=== PATIENT | female | born 1935 | race Caucasian/White ===

== ENCOUNTER 2020-04-18 19:43 | Inpatient (IN) ==
[2020-04-18] MEDS ORDERED: ONDANSETRON 4 MG/2 ML VIAL IV STA (20:14)
[2020-04-18 20:34] LABS: Basophils # 0.1 10*3/uL (0.0-0.2); Basophils % 0.7 % (0.0-0.8); Eosinophils # 0.2 10*3/uL (0.0-0.87); Eosinophils % 2.7 % (0.00-10.9); Hemoglobin 12.2 GM/DL (12.0-16.0); Immature Granulocytes % 0.9 %; Immature Granulocytes Absolute 0.07 #; Lymphocytes # 0.7 10*3/uL (1.4-4.0); Lymphocytes % 9.9 % (21.3-54.2); Mean Corpuscular HGB Conc 33.9 GM/DL (32-36); Mean Corpuscular Volume 101.1 FL (87-102); Mean Platelet Volume 8.3 FL (9.6-12.0); Monocytes % 9.6 % (1.7-12.7); Neutrophils % 76.2 % (38.7-73.9); Platelet Count 158 T/CUMM (130-400); Red Blood Count 3.56 MC/CUMM (3.8-5.5); Red Cell Distribution Width 12.8 % (9.3-17.3); White Blood Count 7.5 T/CUMM (4-12)
[2020-04-18 20:51] LABS: Alanine Aminotransferase 17 U/L (13-56); Albumin 2.5 G/DL (3.4-5.0); Alkaline Phosphatase 83 U/L (45-117); Aspartate Amino Transferase 24 U/L (0-37); Bilirubin,Total < 0.39 MG/DL (0.2-1.0); Blood Urea Nitrogen 63 MG/DL (7-18); Calcium 8.7 MG/DL (8.5-10.1); Estimated Glom Filtration Rate 9 ML/MIN; Glucose 70 MG/DL (74-106); Osmolality,Calculated 288.8 MOS/KG (273-304); Total Protein 6.6 G/DL (6.4-8.3)
[2020-04-18] MEDS ORDERED: cefTRIAXone 1,000 MG in SODIUM CHLORIDE 0.9% 100 ML IV STA (21:17)
[2020-04-18 21:35] LABS: Bacteria,Urine Occasional /HPF (Few); Bilirubin,Urine Negative (Negative); Blood, Urine Negative (Negative); Glucose,Urine (UA) Negative (Negative); Ketones,Urine Negative (Negative); Nitrite,Urine Negative (Negative); Protein,Urine Negative; RBC,Urine 2 /HPF (0-4); Squamous Epithelial Cell,Urine Occasional /HPF (0-10); Urine Appearance CLEAR (Clear); Urine Color Yellow (Yellow); Urine Urobilinogen < 2.0 EU/DL (0.2-1.0); WBC,Urine 2 /HPF (0-6)
[2020-04-19] MEDS ORDERED: GLUCAGON 1 MG VIAL IM PRN (00:50)
[2020-04-19] MEDS ORDERED: DEXTROSE 50% 25 GM/50 ML VIAL IV PRN (00:50)
[2020-04-19] MEDS ORDERED: LACTULOSE 20 GM/30 ML UDCUP PO PRN (00:55)
[2020-04-19] MEDS ORDERED: DOXYCYCLINE HYCLATE INJ 100 MG in SODIUM CHLORIDE 0.9% 100 ML IV SCH (01:00)
[2020-04-19] MEDS ORDERED: LABETALOL 20 MG/4 ML SYRINGE IV PRN (01:14)
[2020-04-19] MEDS ORDERED: DEXTROSE 50% 25 GM/50 ML SYRINGE IV PRN (01:15)
[2020-04-19] MEDS: SODIUM BICARB INJ 50 MEQ in SODIUM CHLORIDE 0.45% 1,000 ML IV SCH (03:41)
[2020-04-19 04:51] LABS: Basophils % 0.4 % (0.0-0.8); Eosinophils # 0.2 10*3/uL (0.0-0.87); Eosinophils % 2.3 % (0.00-10.9); Hematocrit 31.8 VOL% (35.7-47.0); Hemoglobin 10.7 GM/DL (12.0-16.0); Immature Granulocytes % 1.2 %; Immature Granulocytes Absolute 0.09 #; Lymphocytes # 0.6 10*3/uL (1.4-4.0); Lymphocytes % 8.6 % (21.3-54.2); Mean Corpuscular HGB Conc 33.6 GM/DL (32-36); Mean Corpuscular Volume 102.6 FL (87-102); Mean Platelet Volume 8.4 FL (9.6-12.0); Neutrophils % 78.5 % (38.7-73.9); Platelet Count 156 T/CUMM (130-400); Red Cell Distribution Width 12.8 % (9.3-17.3); White Blood Count 7.4 T/CUMM (4-12)
[2020-04-19 05:14] LABS: Albumin 2.4 G/DL (3.4-5.0); Bilirubin,Total 1.2 MG/DL (0.2-1.0); Calcium 8.6 MG/DL (8.5-10.1); Osmolality,Calculated 288.8 MOS/KG (273-304); Total Protein 6.1 G/DL (6.4-8.3)
[2020-04-19] MEDS: hydrALAZINE 20 MG/1 ML VIAL IV PRN ×2 (08:22→20:49)
[2020-04-19] MEDS: ONDANSETRON 4 MG/2 ML VIAL IV PRN (08:29)
[2020-04-19] MEDS: ACETAMINOPHEN 325 MG TABLET PO PRN (10:01)
[2020-04-19] MEDS ORDERED: NON-FORMULARY MEDICATION (Saliva Substitute Combo No.9 [Biotene Dry Mouth Oral Rinse] Mout MUCOUS MEMBRANE SCH (10:30)
[2020-04-19] MEDS ORDERED: SODIUM CHLORIDE 0.9% 1,000 ML IV SCH (11:30)
[2020-04-19] MEDS: CLINDAMYCIN INJ 600 MG in PREMIX 1 EACH IV SCH ×2 (13:13→20:48)
[2020-04-19] MEDS: busPIRone 5 MG TABLET PO SCH (20:48)
[2020-04-19] MEDS: SODIUM CHLORIDE 0.65% NASAL SPRAY 45 ML BOTTLE BOTH NARES PRN (20:48)
[2020-04-19] MEDS: MELATONIN 3 MG TABLET PO SCH (20:49)
[2020-04-19] MEDS: ACETAMINOPHEN 500 MG TABLET PO SCH (20:49)
[2020-04-19] MEDS: FLUTICASONE 50 MCG NASAL SPRAY 16 GM BOTTLE BOTH NARES SCH (21:05)
[2020-04-20] MEDS: SODIUM BICARB INJ 50 MEQ in SODIUM CHLORIDE 0.45% 1,000 ML IV SCH ×2 (03:27→17:21)
[2020-04-20] MEDS: CLINDAMYCIN INJ 600 MG in PREMIX 1 EACH IV SCH ×3 (03:28→20:06)
[2020-04-20] MEDS: LEVOTHYROXINE 50 MCG TABLET PO SCH (06:18)
[2020-04-20 06:22] LABS: Basophils % 0.4 % (0.0-0.8); Eosinophils # 0.1 10*3/uL (0.0-0.87); Eosinophils % 0.7 % (0.00-10.9); Hematocrit 30.9 VOL% (35.7-47.0); Hemoglobin 10.6 GM/DL (12.0-16.0); Immature Granulocytes % 0.9 %; Immature Granulocytes Absolute 0.07 #; Lymphocytes # 0.5 10*3/uL (1.4-4.0); Lymphocytes % 5.6 % (21.3-54.2); Mean Corpuscular HGB Conc 34.3 GM/DL (32-36); Mean Corpuscular Volume 102.3 FL (87-102); Mean Platelet Volume 8.2 FL (9.6-12.0); Monocytes % 8.6 % (1.7-12.7); Neutrophils % 83.8 % (38.7-73.9); Platelet Count 171 T/CUMM (130-400); Red Blood Count 3.02 MC/CUMM (3.8-5.5); Red Cell Distribution Width 13.1 % (9.3-17.3); White Blood Count 8.2 T/CUMM (4-12)
[2020-04-20 06:49] LABS: Albumin 2.4 G/DL (3.4-5.0); Bilirubin,Total 0.7 MG/DL (0.2-1.0); Calcium 8.4 MG/DL (8.5-10.1); Osmolality,Calculated 297.5 MOS/KG (273-304); Total Protein 6.2 G/DL (6.4-8.3)
[2020-04-20] MEDS: busPIRone 5 MG TABLET PO SCH ×2 (12:18→20:07)
[2020-04-20] MEDS: AMIODARONE 200 MG TABLET PO SCH (12:18)
[2020-04-20] MEDS: ASPIRIN CHEW 81 MG TABLET PO SCH (12:18)
[2020-04-20] MEDS: FLUTICASONE 50 MCG NASAL SPRAY 16 GM BOTTLE BOTH NARES SCH ×2 (12:20→20:08)
[2020-04-20] MEDS: hydrALAZINE 20 MG/1 ML VIAL IV PRN (20:05)
[2020-04-20] MEDS: ACETAMINOPHEN 500 MG TABLET PO SCH (20:06)
[2020-04-20] MEDS: MELATONIN 3 MG TABLET PO SCH (20:07)
[2020-04-21] MEDS: CLINDAMYCIN INJ 600 MG in PREMIX 1 EACH IV SCH ×3 (04:29→21:03)
[2020-04-21] MEDS: SODIUM BICARB INJ 50 MEQ in SODIUM CHLORIDE 0.45% 1,000 ML IV SCH ×3 (04:57→22:14)
[2020-04-21] MEDS ORDERED: cefTRIAXone 1,000 MG in SYRINGE 1 EACH IV ONE (06:00)
[2020-04-21] MEDS: LEVOTHYROXINE 50 MCG TABLET PO SCH (06:06)
[2020-04-21 06:07] LABS: Basophils % 0.3 % (0.0-0.8); Eosinophils # 0.2 10*3/uL (0.0-0.87); Hematocrit 27.6 VOL% (35.7-47.0); Hemoglobin 9.6 GM/DL (12.0-16.0); Immature Granulocytes % 1.1 %; Lymphocytes # 0.7 10*3/uL (1.4-4.0); Lymphocytes % 7.6 % (21.3-54.2); Mean Corpuscular HGB Conc 34.8 GM/DL (32-36); Mean Corpuscular Volume 99.6 FL (87-102); Mean Platelet Volume 8.3 FL (9.6-12.0); Monocytes % 9.2 % (1.7-12.7); Neutrophils % 79.8 % (38.7-73.9); Platelet Count 186 T/CUMM (130-400); Red Blood Count 2.77 MC/CUMM (3.8-5.5); Red Cell Distribution Width 12.8 % (9.3-17.3); White Blood Count 8.8 T/CUMM (4-12)
[2020-04-21 06:30] LABS: Calcium 7.3 MG/DL (8.5-10.1); Osmolality,Calculated 295.7 MOS/KG (273-304)
[2020-04-21] MEDS: ASPIRIN CHEW 81 MG TABLET PO SCH (08:37)
[2020-04-21] MEDS: AMIODARONE 200 MG TABLET PO SCH (08:37)
[2020-04-21] MEDS: busPIRone 5 MG TABLET PO SCH ×2 (08:37→21:04)
[2020-04-21] MEDS: FLUTICASONE 50 MCG NASAL SPRAY 16 GM BOTTLE BOTH NARES SCH ×2 (08:38→21:05)
[2020-04-21] MEDS ORDERED: PHENYLEPHRINE 1 MG/10 ML SYRINGE IV ONE (09:57)
[2020-04-21] MEDS ORDERED: LIDOCAINE 2% 5 ML VIAL ONE (09:57)
[2020-04-21] MEDS ORDERED: ETOMIDATE 40 MG/20 ML VIAL IV ONE (09:57)
[2020-04-21] MEDS ORDERED: GENTAMICIN 80 MG/2 ML VIAL ONE (10:01)
[2020-04-21] MEDS ORDERED: LACTATED RINGERS 1,000 ML IV ONE (10:44)
[2020-04-21] MEDS ORDERED: SEVOFLURANE 1 UNIT/15 MINUTE INH ONE (10:44)
[2020-04-21] MEDS: hydrALAZINE 20 MG/1 ML VIAL IV PRN (11:05)
[2020-04-21] MEDS: ACETAMINOPHEN 325 MG TABLET PO PRN (13:43)
[2020-04-21] MEDS: OXYBUTYNIN XL 15 MG TABLET PO SCH (13:50)
[2020-04-21] MEDS: MORPHINE 4 MG/1 ML VIAL IV PRN (16:29)
[2020-04-21] MEDS: amLODIPine 10 MG TABLET PO SCH (16:53)
[2020-04-21] MEDS: MELATONIN 3 MG TABLET PO SCH (21:07)
[2020-04-21] MEDS: ACETAMINOPHEN 500 MG TABLET PO SCH (21:09)
[2020-04-22] MEDS: MORPHINE 4 MG/1 ML VIAL IV PRN ×2 (02:46→15:47)
[2020-04-22] MEDS: CLINDAMYCIN INJ 600 MG in PREMIX 1 EACH IV SCH ×3 (04:07→22:06)
[2020-04-22 06:46] LABS: Basophils % 0.4 % (0.0-0.8); Eosinophils # 0.1 10*3/uL (0.0-0.87); Eosinophils % 0.6 % (0.00-10.9); Hematocrit 28.6 VOL% (35.7-47.0); Immature Granulocytes % 0.9 %; Immature Granulocytes Absolute 0.09 #; Lymphocytes # 0.4 10*3/uL (1.4-4.0); Lymphocytes % 3.8 % (21.3-54.2); Mean Corpuscular Volume 99.7 FL (87-102); Mean Platelet Volume 8.4 FL (9.6-12.0); Monocytes % 9.3 % (1.7-12.7); Platelet Count 186 T/CUMM (130-400); Red Blood Count 2.87 MC/CUMM (3.8-5.5); Red Cell Distribution Width 13.2 % (9.3-17.3); White Blood Count 10.4 T/CUMM (4-12)
[2020-04-22 07:09] LABS: Calcium 7.9 MG/DL (8.5-10.1); Osmolality,Calculated 296.3 MOS/KG (273-304)
[2020-04-22] MEDS ORDERED: POTASSIUM CHLORIDE RIDER 10 MEQ in PREMIX 1 EACH IV PRN (08:00)
[2020-04-22] MEDS ORDERED: POTASSIUM CHLORIDE 20 MEQ TABLET PO PRN (08:00)
[2020-04-22] MEDS: POTASSIUM CHLORIDE 20 MEQ/15 ML UDCUP PER TUBE PRN ×4 (08:57→14:41)
[2020-04-22] MEDS: OXYBUTYNIN XL 15 MG TABLET PO SCH (08:58)
[2020-04-22] MEDS: amLODIPine 10 MG TABLET PO SCH (08:59)
[2020-04-22] MEDS: AMIODARONE 200 MG TABLET PO SCH (08:59)
[2020-04-22] MEDS: ASPIRIN CHEW 81 MG TABLET PO SCH (08:59)
[2020-04-22] MEDS: busPIRone 5 MG TABLET PO SCH ×2 (08:59→22:06)
[2020-04-22] MEDS: FLUTICASONE 50 MCG NASAL SPRAY 16 GM BOTTLE BOTH NARES SCH ×2 (09:00→22:07)
[2020-04-22] MEDS: SODIUM BICARB INJ 50 MEQ in SODIUM CHLORIDE 0.45% 1,000 ML IV SCH (10:15)
[2020-04-22] MEDS: ONDANSETRON 4 MG/2 ML VIAL IV PRN (15:44)
[2020-04-22] MEDS: MELATONIN 3 MG TABLET PO SCH (22:06)
[2020-04-22] MEDS: ACETAMINOPHEN 500 MG TABLET PO SCH (22:07)
[2020-04-23] MEDS: SODIUM BICARB INJ 50 MEQ in SODIUM CHLORIDE 0.45% 1,000 ML IV SCH (01:23)
[2020-04-23] MEDS: MORPHINE 4 MG/1 ML VIAL IV PRN (01:23)
[2020-04-23] MEDS: CLINDAMYCIN INJ 600 MG in PREMIX 1 EACH IV SCH ×3 (03:45→20:22)
[2020-04-23] MEDS: POTASSIUM CHLORIDE 20 MEQ/15 ML UDCUP PER TUBE PRN ×4 (03:46→13:53)
[2020-04-23 05:58] LABS: Basophils % 0.3 % (0.0-0.8); Eosinophils # 0.2 10*3/uL (0.0-0.87); Eosinophils % 1.8 % (0.00-10.9); Hematocrit 27.1 VOL% (35.7-47.0); Hemoglobin 9.4 GM/DL (12.0-16.0); Immature Granulocytes % 1.3 %; Immature Granulocytes Absolute 0.11 #; Lymphocytes # 0.7 10*3/uL (1.4-4.0); Lymphocytes % 7.4 % (21.3-54.2); Mean Corpuscular HGB Conc 34.7 GM/DL (32-36); Mean Corpuscular Volume 101.1 FL (87-102); Mean Platelet Volume 8.6 FL (9.6-12.0); Neutrophils % 76.2 % (38.7-73.9); Platelet Count 165 T/CUMM (130-400); Red Blood Count 2.68 MC/CUMM (3.8-5.5); Red Cell Distribution Width 13.3 % (9.3-17.3); White Blood Count 8.8 T/CUMM (4-12)
[2020-04-23 06:07] LABS: Calcium 7.6 MG/DL (8.5-10.1); Osmolality,Calculated 285.7 MOS/KG (273-304)
[2020-04-23] MEDS ORDERED: MAGNESIUM SULF RIDER 4 GM in PREMIX 1 EACH IV PRN (07:42)
[2020-04-23] MEDS: AMIODARONE 200 MG TABLET PO SCH (09:36)
[2020-04-23] MEDS: ASPIRIN CHEW 81 MG TABLET PO SCH (09:36)
[2020-04-23] MEDS: busPIRone 5 MG TABLET PO SCH ×2 (09:36→20:22)
[2020-04-23] MEDS: OXYBUTYNIN XL 15 MG TABLET PO SCH (09:36)
[2020-04-23] MEDS: amLODIPine 10 MG TABLET PO SCH (09:37)
[2020-04-23] MEDS ORDERED: PROMETHAZINE 25 MG/1 ML VIAL IM PRN (10:51)
[2020-04-23] MEDS: FLUTICASONE 50 MCG NASAL SPRAY 16 GM BOTTLE BOTH NARES SCH ×2 (12:11→20:24)
[2020-04-23] MEDS: MELATONIN 3 MG TABLET PO SCH (20:23)
[2020-04-23] MEDS: ACETAMINOPHEN 500 MG TABLET PO SCH (20:24)
[2020-04-24] MEDS: CLINDAMYCIN INJ 600 MG in PREMIX 1 EACH IV SCH ×3 (03:43→20:36)
[2020-04-24 08:17] LABS: Basophils % 0.4 % (0.0-0.8); Eosinophils # 0.2 10*3/uL (0.0-0.87); Eosinophils % 2.9 % (0.00-10.9); Hematocrit 28.4 VOL% (35.7-47.0); Hemoglobin 9.6 GM/DL (12.0-16.0); Immature Granulocytes % 1.8 %; Immature Granulocytes Absolute 0.15 #; Lymphocytes # 0.9 10*3/uL (1.4-4.0); Lymphocytes % 10.8 % (21.3-54.2); Mean Corpuscular HGB Conc 33.8 GM/DL (32-36); Mean Corpuscular Volume 102.2 FL (87-102); Mean Platelet Volume 8.4 FL (9.6-12.0); Monocytes % 10.1 % (1.7-12.7); Platelet Count 186 T/CUMM (130-400); Red Blood Count 2.78 MC/CUMM (3.8-5.5); Red Cell Distribution Width 13.5 % (9.3-17.3); White Blood Count 8.2 T/CUMM (4-12)
[2020-04-24 08:44] LABS: Calcium 8.2 MG/DL (8.5-10.1); Osmolality,Calculated 287.3 MOS/KG (273-304)
[2020-04-24 08:59] LABS: Bilirubin,Total 0.7 MG/DL (0.2-1.0); Calcium 8.2 MG/DL (8.5-10.1); Osmolality,Calculated 285.4 MOS/KG (273-304); Total Protein 5.9 G/DL (6.4-8.3)
[2020-04-24] MEDS ORDERED: MAGNESIUM SULF RIDER 4 GM in PREMIX 1 EACH IV ONE (09:30)
[2020-04-24] MEDS: OXYBUTYNIN XL 15 MG TABLET PO SCH (09:54)
[2020-04-24] MEDS: ASPIRIN CHEW 81 MG TABLET PO SCH (09:54)
[2020-04-24] MEDS: AMIODARONE 200 MG TABLET PO SCH (09:54)
[2020-04-24] MEDS: busPIRone 5 MG TABLET PO SCH ×2 (09:55→20:38)
[2020-04-24] MEDS: amLODIPine 10 MG TABLET PO SCH (09:55)
[2020-04-24] MEDS: FLUTICASONE 50 MCG NASAL SPRAY 16 GM BOTTLE BOTH NARES SCH ×2 (09:56→21:29)
[2020-04-24] MEDS: MORPHINE 4 MG/1 ML VIAL IV PRN ×2 (15:50→22:15)
[2020-04-24] MEDS: MELATONIN 3 MG TABLET PO SCH (20:37)
[2020-04-24] MEDS: ACETAMINOPHEN 500 MG TABLET PO SCH (20:38)
[2020-04-24] MEDS: ONDANSETRON 4 MG/2 ML VIAL IV PRN (22:15)
[2020-04-25] MEDS: CLINDAMYCIN INJ 600 MG in PREMIX 1 EACH IV SCH ×3 (04:32→20:51)
[2020-04-25] MEDS: amLODIPine 10 MG TABLET PO SCH (09:15)
[2020-04-25] MEDS: ASPIRIN CHEW 81 MG TABLET PO SCH (09:15)
[2020-04-25] MEDS: AMIODARONE 200 MG TABLET PO SCH (09:16)
[2020-04-25] MEDS: OXYBUTYNIN XL 15 MG TABLET PO SCH (09:16)
[2020-04-25] MEDS: ONDANSETRON 4 MG/2 ML VIAL IV PRN (09:16)
[2020-04-25] MEDS: busPIRone 5 MG TABLET PO SCH ×2 (09:16→20:52)
[2020-04-25] MEDS: MORPHINE 4 MG/1 ML VIAL IV PRN ×2 (09:21→17:46)
[2020-04-25] MEDS: FLUTICASONE 50 MCG NASAL SPRAY 16 GM BOTTLE BOTH NARES SCH ×2 (09:33→20:51)
[2020-04-25 09:57] LABS: Basophils # 0.1 10*3/uL (0.0-0.2); Basophils % 0.6 % (0.0-0.8); Eosinophils # 0.2 10*3/uL (0.0-0.87); Eosinophils % 2.6 % (0.00-10.9); Hematocrit 27.5 VOL% (35.7-47.0); Hemoglobin 9.5 GM/DL (12.0-16.0); Immature Granulocytes % 1.3 %; Immature Granulocytes Absolute 0.11 #; Lymphocytes # 0.5 10*3/uL (1.4-4.0); Lymphocytes % 6.1 % (21.3-54.2); Mean Corpuscular HGB Conc 34.5 GM/DL (32-36); Mean Corpuscular Volume 101.5 FL (87-102); Mean Platelet Volume 8.6 FL (9.6-12.0); Monocytes % 7.4 % (1.7-12.7); Platelet Count 222 T/CUMM (130-400); Red Blood Count 2.71 MC/CUMM (3.8-5.5); Red Cell Distribution Width 13.3 % (9.3-17.3); White Blood Count 8.5 T/CUMM (4-12)
[2020-04-25 10:20] LABS: Calcium 8.2 MG/DL (8.5-10.1); Osmolality,Calculated 279.8 MOS/KG (273-304)
[2020-04-25] MEDS: MELATONIN 3 MG TABLET PO SCH (20:51)
[2020-04-25] MEDS: ACETAMINOPHEN 500 MG TABLET PO SCH (21:33)
[2020-04-26] MEDS: CLINDAMYCIN INJ 600 MG in PREMIX 1 EACH IV SCH ×3 (04:14→21:02)
[2020-04-26 05:48] LABS: Basophils % 0.5 % (0.0-0.8); Eosinophils # 0.3 10*3/uL (0.0-0.87); Eosinophils % 4.1 % (0.00-10.9); Hematocrit 26.9 VOL% (35.7-47.0); Hemoglobin 9.1 GM/DL (12.0-16.0); Immature Granulocytes % 2.3 %; Immature Granulocytes Absolute 0.18 #; Lymphocytes # 0.9 10*3/uL (1.4-4.0); Lymphocytes % 11.6 % (21.3-54.2); Mean Corpuscular HGB Conc 33.8 GM/DL (32-36); Mean Corpuscular Volume 102.7 FL (87-102); Monocytes % 10.8 % (1.7-12.7); Neutrophils % 70.7 % (38.7-73.9); Platelet Count 215 T/CUMM (130-400); Red Blood Count 2.62 MC/CUMM (3.8-5.5); Red Cell Distribution Width 13.4 % (9.3-17.3); White Blood Count 7.8 T/CUMM (4-12)
[2020-04-26 06:40] LABS: Calcium 8.3 MG/DL (8.5-10.1); Osmolality,Calculated 274.2 MOS/KG (273-304)
[2020-04-26] MEDS: amLODIPine 10 MG TABLET PO SCH (09:21)
[2020-04-26] MEDS: ASPIRIN CHEW 81 MG TABLET PO SCH (09:21)
[2020-04-26] MEDS: AMIODARONE 200 MG TABLET PO SCH (09:21)
[2020-04-26] MEDS: OXYBUTYNIN XL 15 MG TABLET PO SCH (09:21)
[2020-04-26] MEDS: busPIRone 5 MG TABLET PO SCH ×2 (09:21→21:02)
[2020-04-26] MEDS: FLUTICASONE 50 MCG NASAL SPRAY 16 GM BOTTLE BOTH NARES SCH ×2 (09:24→21:05)
[2020-04-26] MEDS: MELATONIN 3 MG TABLET PO SCH (21:02)
[2020-04-26] MEDS: ACETAMINOPHEN 500 MG TABLET PO SCH (21:03)
[2020-04-27] MEDS: MORPHINE 4 MG/1 ML VIAL IV PRN ×3 (01:45→22:00)
[2020-04-27 08:20] LABS: Basophils % 0.3 % (0.0-0.8); Eosinophils % 0.3 % (0.00-10.9); Hematocrit 26.9 VOL% (35.7-47.0); Hemoglobin 9.4 GM/DL (12.0-16.0); Immature Granulocytes % 1.4 %; Immature Granulocytes Absolute 0.18 #; Lymphocytes # 0.4 10*3/uL (1.4-4.0); Lymphocytes % 2.7 % (21.3-54.2); Mean Corpuscular HGB Conc 34.9 GM/DL (32-36); Mean Corpuscular Volume 102.3 FL (87-102); Mean Platelet Volume 8.6 FL (9.6-12.0); Monocytes % 6.3 % (1.7-12.7); Platelet Count 225 T/CUMM (130-400); Red Blood Count 2.63 MC/CUMM (3.8-5.5); Red Cell Distribution Width 13.2 % (9.3-17.3); White Blood Count 13.2 T/CUMM (4-12)
[2020-04-27 08:29] LABS: Calcium 8.4 MG/DL (8.5-10.1); Osmolality,Calculated 278.1 MOS/KG (273-304)
[2020-04-27] MEDS: FLUTICASONE 50 MCG NASAL SPRAY 16 GM BOTTLE BOTH NARES SCH ×2 (08:49→20:29)
[2020-04-27] MEDS: ASPIRIN CHEW 81 MG TABLET PO SCH (08:50)
[2020-04-27] MEDS: busPIRone 5 MG TABLET PO SCH ×2 (08:50→20:29)
[2020-04-27] MEDS: OXYBUTYNIN XL 15 MG TABLET PO SCH (08:50)
[2020-04-27] MEDS: AMIODARONE 200 MG TABLET PO SCH (08:50)
[2020-04-27] MEDS: amLODIPine 10 MG TABLET PO SCH (08:50)
[2020-04-27 09:03] LABS: Band Neutrophils 2 % (0-10); Eosinophils 1 % (0-10); Lymphocytes 2 % (20-55); Segmented Neutrophils 91 % (50-85); Total Cells Counted 100
[2020-04-27 09:04] LABS: Hypochromasia Slight
[2020-04-27 09:05] LABS: Macrocytosis Slight; Platelet Estimate Normal
[2020-04-27 13:22] LABS: Amorphous Crystals,Urine Occasional /HPF (Few); Bilirubin,Urine Negative (Negative); Blood, Urine Moderate mg/dL (Negative); Glucose,Urine (UA) 50 mg/dL (Negative); Ketones,Urine Negative (Negative); Mucus,Urine Occasional /LPF (Occasional); Nitrite,Urine Negative (Negative); Protein,Urine 100 MG/DL; RBC,Urine 443 /HPF (0-4); Urine Appearance Slightly Hazy (Clear); Urine Color Red (Yellow); Urine Specific Gravity 1.006 (1.001-1.035); Urine Urobilinogen < 2.0 EU/DL (0.2-1.0); WBC,Urine 2 /HPF (0-6)
[2020-04-27] MEDS: ONDANSETRON 4 MG/2 ML VIAL IV PRN (17:00)
[2020-04-27] MEDS: MELATONIN 3 MG TABLET PO SCH (20:29)
[2020-04-27] MEDS: ACETAMINOPHEN 500 MG TABLET PO SCH (20:30)
[2020-04-28 06:47] LABS: Basophils % 0.3 % (0.0-0.8); Eosinophils # 0.2 10*3/uL (0.0-0.87); Eosinophils % 1.4 % (0.00-10.9); Hematocrit 27.1 VOL% (35.7-47.0); Hemoglobin 9.1 GM/DL (12.0-16.0); Immature Granulocytes % 1.7 %; Immature Granulocytes Absolute 0.19 #; Lymphocytes # 0.9 10*3/uL (1.4-4.0); Lymphocytes % 7.8 % (21.3-54.2); Mean Corpuscular HGB Conc 33.6 GM/DL (32-36); Mean Corpuscular Volume 102.7 FL (87-102); Mean Platelet Volume 8.7 FL (9.6-12.0); Monocytes % 11.4 % (1.7-12.7); Neutrophils % 77.4 % (38.7-73.9); Platelet Count 217 T/CUMM (130-400); Red Blood Count 2.64 MC/CUMM (3.8-5.5); Red Cell Distribution Width 13.1 % (9.3-17.3); White Blood Count 11.5 T/CUMM (4-12)
[2020-04-28 07:16] LABS: Calcium 8.3 MG/DL (8.5-10.1); Osmolality,Calculated 271.7 MOS/KG (273-304)
[2020-04-28] MEDS: FLUTICASONE 50 MCG NASAL SPRAY 16 GM BOTTLE BOTH NARES SCH ×2 (08:53→21:28)
[2020-04-28] MEDS: AMIODARONE 200 MG TABLET PO SCH (08:53)
[2020-04-28] MEDS: busPIRone 5 MG TABLET PO SCH ×2 (08:54→21:28)
[2020-04-28] MEDS: amLODIPine 10 MG TABLET PO SCH (08:54)
[2020-04-28] MEDS: ASPIRIN CHEW 81 MG TABLET PO SCH (08:54)
[2020-04-28] MEDS: OXYBUTYNIN XL 15 MG TABLET PO SCH (08:54)
[2020-04-28 12:50] LABS: INR 1.1; PT Patient Result 11.9 SECS (9.8-11.9)
[2020-04-28] MEDS: cefTRIAXone 1,000 MG in SYRINGE 1 EACH IV SCH (13:06)
[2020-04-28] MEDS ORDERED: ACETAMINOPHEN 1,000 MG/100 ML VIAL IV ONE (14:35)
[2020-04-28] MEDS ORDERED: ALBUTEROL/IPRATROPIUM 3 ML NEB RESP TX ONE ×2 (14:37→14:40)
[2020-04-28] MEDS: ACETAMINOPHEN 500 MG TABLET PO SCH (21:29)
[2020-04-28] MEDS: MELATONIN 3 MG TABLET PO SCH (21:29)
[2020-04-28] MEDS: MORPHINE 4 MG/1 ML VIAL IV PRN (21:50)
[2020-04-29] MEDS ORDERED: guaiFENesin 200 MG/10 ML UDCUP PO PRN (02:06)
[2020-04-29 06:08] LABS: Basophils % 0.2 % (0.0-0.8); Eosinophils % 0.1 % (0.00-10.9); Hematocrit 26.6 VOL% (35.7-47.0); Hemoglobin 9.2 GM/DL (12.0-16.0); Immature Granulocytes Absolute 0.32 #; Lymphocytes # 0.6 10*3/uL (1.4-4.0); Lymphocytes % 3.6 % (21.3-54.2); Mean Corpuscular HGB Conc 34.6 GM/DL (32-36); Mean Corpuscular Volume 101.9 FL (87-102); Mean Platelet Volume 8.8 FL (9.6-12.0); Monocytes % 8.4 % (1.7-12.7); Neutrophils % 85.7 % (38.7-73.9); Platelet Count 312 T/CUMM (130-400); Red Blood Count 2.61 MC/CUMM (3.8-5.5); White Blood Count 16.3 T/CUMM (4-12)
[2020-04-29 06:22] LABS: Calcium 8.4 MG/DL (8.5-10.1); Osmolality,Calculated 274.7 MOS/KG (273-304)
[2020-04-29 06:39] LABS: Hypochromasia Slight; Lymphocytes 5 % (20-55); Macrocytosis Slight; Platelet Estimate Normal; Segmented Neutrophils 89 % (50-85); Total Cells Counted 100
[2020-04-29] MEDS: ONDANSETRON 4 MG/2 ML VIAL IV PRN (09:57)
[2020-04-29] MEDS: OXYBUTYNIN XL 15 MG TABLET PO SCH (09:57)
[2020-04-29] MEDS: ASPIRIN CHEW 81 MG TABLET PO SCH (09:57)
[2020-04-29] MEDS: busPIRone 5 MG TABLET PO SCH ×2 (09:57→21:08)
[2020-04-29] MEDS: amLODIPine 10 MG TABLET PO SCH (09:58)
[2020-04-29] MEDS: AMIODARONE 200 MG TABLET PO SCH (09:58)
[2020-04-29] MEDS: FLUTICASONE 50 MCG NASAL SPRAY 16 GM BOTTLE BOTH NARES SCH ×2 (09:59→21:08)
[2020-04-29] MEDS: cefTRIAXone 1,000 MG in SYRINGE 1 EACH IV SCH (13:27)
[2020-04-29] MEDS: ACETAMINOPHEN 325 MG TABLET PO PRN (16:28)
[2020-04-29] MEDS: MELATONIN 3 MG TABLET PO SCH (21:07)
[2020-04-29] MEDS: ACETAMINOPHEN 500 MG TABLET PO SCH (21:07)
[2020-04-30 06:40] LABS: Basophils % 0.2 % (0.0-0.8); Eosinophils # 0.1 10*3/uL (0.0-0.87); Eosinophils % 0.7 % (0.00-10.9); Hematocrit 25.4 VOL% (35.7-47.0); Hemoglobin 8.6 GM/DL (12.0-16.0); Immature Granulocytes % 2.5 %; Immature Granulocytes Absolute 0.32 #; Lymphocytes # 0.8 10*3/uL (1.4-4.0); Lymphocytes % 6.5 % (21.3-54.2); Mean Corpuscular HGB Conc 33.9 GM/DL (32-36); Mean Platelet Volume 8.4 FL (9.6-12.0); Monocytes % 11.6 % (1.7-12.7); Neutrophils % 78.5 % (38.7-73.9); Platelet Count 243 T/CUMM (130-400); Red Blood Count 2.49 MC/CUMM (3.8-5.5); Red Cell Distribution Width 12.7 % (9.3-17.3); White Blood Count 12.8 T/CUMM (4-12)
[2020-04-30 06:54] LABS: Calcium 8.2 MG/DL (8.5-10.1); Osmolality,Calculated 273.9 MOS/KG (273-304)
[2020-04-30] MEDS: OXYBUTYNIN XL 15 MG TABLET PO SCH (09:17)
[2020-04-30] MEDS: ASPIRIN CHEW 81 MG TABLET PO SCH (09:17)
[2020-04-30] MEDS: busPIRone 5 MG TABLET PO SCH ×2 (09:17→20:40)
[2020-04-30] MEDS: FLUTICASONE 50 MCG NASAL SPRAY 16 GM BOTTLE BOTH NARES SCH ×2 (09:18→20:42)
[2020-04-30] MEDS: AMIODARONE 200 MG TABLET PO SCH (09:18)
[2020-04-30] MEDS: amLODIPine 10 MG TABLET PO SCH (09:18)
[2020-04-30] MEDS: cefTRIAXone 1,000 MG in SYRINGE 1 EACH IV SCH (13:27)
[2020-04-30] MEDS: ACETAMINOPHEN 500 MG TABLET PO SCH (20:39)
[2020-04-30] MEDS: MELATONIN 3 MG TABLET PO SCH (20:41)
[2020-05-01 05:50] LABS: Basophils % 0.5 % (0.0-0.8); Eosinophils # 0.1 10*3/uL (0.0-0.87); Eosinophils % 0.9 % (0.00-10.9); Hematocrit 24.7 VOL% (35.7-47.0); Hemoglobin 8.3 GM/DL (12.0-16.0); Immature Granulocytes % 2.2 %; Immature Granulocytes Absolute 0.14 #; Lymphocytes # 0.4 10*3/uL (1.4-4.0); Lymphocytes % 6.9 % (21.3-54.2); Mean Corpuscular HGB Conc 33.6 GM/DL (32-36); Mean Corpuscular Volume 102.5 FL (87-102); Mean Platelet Volume 8.6 FL (9.6-12.0); Monocytes % 9.9 % (1.7-12.7); Neutrophils % 79.6 % (38.7-73.9); Platelet Count 297 T/CUMM (130-400); Red Blood Count 2.41 MC/CUMM (3.8-5.5); Red Cell Distribution Width 12.5 % (9.3-17.3); White Blood Count 6.4 T/CUMM (4-12)
[2020-05-01 06:04] LABS: Calcium 8.3 MG/DL (8.5-10.1); Osmolality,Calculated 277.7 MOS/KG (273-304)
[2020-05-01 06:06] LABS: Uric Acid 10.9 MG/DL (2.6-6.0)
[2020-05-01] MEDS: busPIRone 5 MG TABLET PO SCH ×2 (09:13→20:28)
[2020-05-01] MEDS: AMIODARONE 200 MG TABLET PO SCH (09:13)
[2020-05-01] MEDS: ASPIRIN CHEW 81 MG TABLET PO SCH (09:13)
[2020-05-01] MEDS: OXYBUTYNIN XL 15 MG TABLET PO SCH (09:13)
[2020-05-01] MEDS: FLUTICASONE 50 MCG NASAL SPRAY 16 GM BOTTLE BOTH NARES SCH ×2 (09:15→20:29)
[2020-05-01] MEDS: amLODIPine 10 MG TABLET PO SCH (09:15)
[2020-05-01] MEDS: cefTRIAXone 1,000 MG in SYRINGE 1 EACH IV SCH (12:35)
[2020-05-01] MEDS: ACETAMINOPHEN 325 MG TABLET PO PRN (18:15)
[2020-05-01] MEDS: ACETAMINOPHEN 500 MG TABLET PO SCH (20:28)
[2020-05-01] MEDS: MELATONIN 3 MG TABLET PO SCH (20:28)
[2020-05-02 05:58] LABS: Calcium 8.1 MG/DL (8.5-10.1); Osmolality,Calculated 284.1 MOS/KG (273-304)
[2020-05-02] MEDS: ASPIRIN CHEW 81 MG TABLET PO SCH (08:48)
[2020-05-02] MEDS: OXYBUTYNIN XL 15 MG TABLET PO SCH (08:48)
[2020-05-02] MEDS: amLODIPine 10 MG TABLET PO SCH (08:48)
[2020-05-02] MEDS: AMIODARONE 200 MG TABLET PO SCH (08:48)
[2020-05-02] MEDS: busPIRone 5 MG TABLET PO SCH ×2 (08:48→20:39)
[2020-05-02] MEDS: FLUTICASONE 50 MCG NASAL SPRAY 16 GM BOTTLE BOTH NARES SCH ×2 (08:49→20:39)
[2020-05-02] MEDS: POTASSIUM CHLORIDE 20 MEQ/15 ML UDCUP PER TUBE PRN ×2 (11:13→13:23)
[2020-05-02] MEDS: MAGNESIUM SULF RIDER 2 GM in PREMIX 1 EACH IV PRN (11:13)
[2020-05-02] MEDS: cefTRIAXone 1,000 MG in SYRINGE 1 EACH IV SCH (11:13)
[2020-05-02] MEDS: ACETAMINOPHEN 500 MG TABLET PO SCH (20:39)
[2020-05-02] MEDS: MELATONIN 3 MG TABLET PO SCH (20:39)
[2020-05-03 05:16] LABS: Basophils % 0.1 % (0.0-0.8); Eosinophils % 0.5 % (0.00-10.9); Hematocrit 22.3 VOL% (35.7-47.0); Hemoglobin 7.6 GM/DL (12.0-16.0); Immature Granulocytes % 2.8 %; Immature Granulocytes Absolute 0.21 #; Lymphocytes # 0.4 10*3/uL (1.4-4.0); Lymphocytes % 5.5 % (21.3-54.2); Mean Corpuscular HGB Conc 34.1 GM/DL (32-36); Mean Corpuscular Volume 101.4 FL (87-102); Mean Platelet Volume 8.4 FL (9.6-12.0); Monocytes % 10.6 % (1.7-12.7); Neutrophils % 80.5 % (38.7-73.9); Platelet Count 372 T/CUMM (130-400); Red Cell Distribution Width 12.9 % (9.3-17.3); White Blood Count 7.4 T/CUMM (4-12)
[2020-05-03 05:40] LABS: Calcium 8.7 MG/DL (8.5-10.1)
[2020-05-03 05:45] LABS: Band Neutrophils 2 % (0-10); Lymphocytes 9 % (20-55); Platelet Estimate Adequate; Segmented Neutrophils 75 % (50-85); Total Cells Counted 100
[2020-05-03 05:46] LABS: Hypochromasia 2+; Ovalocytes Slight
[2020-05-03] MEDS: AMIODARONE 200 MG TABLET PO SCH (09:27)
[2020-05-03] MEDS: OXYBUTYNIN XL 15 MG TABLET PO SCH (09:27)
[2020-05-03] MEDS: busPIRone 5 MG TABLET PO SCH ×2 (09:28→22:27)
[2020-05-03] MEDS: ASPIRIN CHEW 81 MG TABLET PO SCH (09:28)
[2020-05-03] MEDS: amLODIPine 10 MG TABLET PO SCH (09:28)
[2020-05-03] MEDS: FLUTICASONE 50 MCG NASAL SPRAY 16 GM BOTTLE BOTH NARES SCH ×2 (09:29→22:27)
[2020-05-03] MEDS: POTASSIUM CHLORIDE RIDER 10 MEQ in PREMIX 1 EACH IV SCH ×4 (12:28→15:06)
[2020-05-03] MEDS: cefTRIAXone 1,000 MG in SYRINGE 1 EACH IV SCH (12:28)
[2020-05-03] MEDS: ACETAMINOPHEN 325 MG TABLET PO PRN (12:47)
[2020-05-03] MEDS ORDERED: POTASSIUM CHLORIDE 20 MEQ/15 ML UDCUP PER TUBE PRN (12:55)
[2020-05-03] MEDS: POTASSIUM CHLORIDE 20 MEQ TABLET PO PRN ×3 (13:06→15:17)
[2020-05-03] MEDS ORDERED: POTASSIUM CHLORIDE 20 MEQ/15 ML UDCUP PO PRN (14:31)
[2020-05-03] MEDS: ACETAMINOPHEN 500 MG TABLET PO SCH (22:27)
[2020-05-03] MEDS: MELATONIN 3 MG TABLET PO SCH (22:27)
[2020-05-04 05:30] LABS: Basophils % 0.4 % (0.0-0.8); Eosinophils # 0.1 10*3/uL (0.0-0.87); Eosinophils % 0.8 % (0.00-10.9); Hematocrit 22.9 VOL% (35.7-47.0); Hemoglobin 7.7 GM/DL (12.0-16.0); Immature Granulocytes % 6.6 %; Immature Granulocytes Absolute 0.59 #; Lymphocytes # 0.6 10*3/uL (1.4-4.0); Lymphocytes % 6.9 % (21.3-54.2); Mean Corpuscular HGB Conc 33.6 GM/DL (32-36); Mean Corpuscular Volume 101.8 FL (87-102); Mean Platelet Volume 8.5 FL (9.6-12.0); Monocytes % 9.5 % (1.7-12.7); Neutrophils % 75.8 % (38.7-73.9); Platelet Count 394 T/CUMM (130-400); Red Blood Count 2.25 MC/CUMM (3.8-5.5); Red Cell Distribution Width 13.4 % (9.3-17.3)
[2020-05-04 05:52] LABS: Calcium 8.7 MG/DL (8.5-10.1); Osmolality,Calculated 286.7 MOS/KG (273-304)
[2020-05-04 05:53] LABS: Lymphocytes 7 % (20-55); Promyelocytes 2 %; Segmented Neutrophils 82 % (50-85); Total Cells Counted 100
[2020-05-04 05:54] LABS: Hypochromasia 1+; Macrocytosis Slight; Polychromasia Slight
[2020-05-04 05:55] LABS: Platelet Estimate Normal
[2020-05-04] MEDS: POTASSIUM CHLORIDE 20 MEQ TABLET PO PRN ×4 (08:00→11:24)
[2020-05-04] MEDS: busPIRone 5 MG TABLET PO SCH ×2 (09:00→21:24)
[2020-05-04] MEDS: ASPIRIN CHEW 81 MG TABLET PO SCH (09:00)
[2020-05-04] MEDS: OXYBUTYNIN XL 15 MG TABLET PO SCH (09:00)
[2020-05-04] MEDS: AMIODARONE 200 MG TABLET PO SCH (09:01)
[2020-05-04] MEDS: amLODIPine 10 MG TABLET PO SCH (09:01)
[2020-05-04] MEDS: FLUTICASONE 50 MCG NASAL SPRAY 16 GM BOTTLE BOTH NARES SCH ×2 (09:01→21:24)
[2020-05-04] MEDS: cefTRIAXone 1,000 MG in SYRINGE 1 EACH IV SCH (11:24)
[2020-05-04] MEDS: ACETAMINOPHEN 500 MG TABLET PO SCH (21:24)
[2020-05-04] MEDS: MELATONIN 3 MG TABLET PO SCH (21:24)
[2020-05-05 06:12] LABS: Osmolality,Calculated 292.3 MOS/KG (273-304)
[2020-05-05] MEDS: ASPIRIN CHEW 81 MG TABLET PO SCH (10:35)
[2020-05-05] MEDS: busPIRone 5 MG TABLET PO SCH ×2 (10:36→20:26)
[2020-05-05] MEDS: OXYBUTYNIN XL 15 MG TABLET PO SCH (10:36)
[2020-05-05] MEDS: AMIODARONE 200 MG TABLET PO SCH (10:36)
[2020-05-05] MEDS: amLODIPine 10 MG TABLET PO SCH (10:36)
[2020-05-05] MEDS: SODIUM CHLORIDE 0.65% NASAL SPRAY 45 ML BOTTLE BOTH NARES PRN (10:38)
[2020-05-05] MEDS: FLUTICASONE 50 MCG NASAL SPRAY 16 GM BOTTLE BOTH NARES SCH ×2 (10:55→20:26)
[2020-05-05] MEDS: cefTRIAXone 1,000 MG in SYRINGE 1 EACH IV SCH (12:03)
[2020-05-05] MEDS: MAGNESIUM SULF RIDER 2 GM in PREMIX 1 EACH IV PRN (12:03)
[2020-05-05] MEDS: MELATONIN 3 MG TABLET PO SCH (20:26)
[2020-05-05] MEDS: ACETAMINOPHEN 500 MG TABLET PO SCH (20:26)
[2020-05-06] MEDS: ONDANSETRON 4 MG/2 ML VIAL IV PRN (03:00)
[2020-05-06 06:45] LABS: Calcium 8.9 MG/DL (8.5-10.1); Osmolality,Calculated 286.5 MOS/KG (273-304)
[2020-05-06] MEDS: AMIODARONE 200 MG TABLET PO SCH (09:46)
[2020-05-06] MEDS: OXYBUTYNIN XL 15 MG TABLET PO SCH (09:46)
[2020-05-06] MEDS: amLODIPine 10 MG TABLET PO SCH (09:46)
[2020-05-06] MEDS: ASPIRIN CHEW 81 MG TABLET PO SCH (09:46)
[2020-05-06] MEDS: FLUTICASONE 50 MCG NASAL SPRAY 16 GM BOTTLE BOTH NARES SCH ×2 (09:48→20:03)
[2020-05-06] MEDS: busPIRone 5 MG TABLET PO SCH ×2 (12:12→20:02)
[2020-05-06] MEDS: ACETAMINOPHEN 325 MG TABLET PO PRN (16:31)
[2020-05-06] MEDS: ACETAMINOPHEN 500 MG TABLET PO SCH (20:03)
[2020-05-06] MEDS: MELATONIN 3 MG TABLET PO SCH (20:03)
[2020-05-07 05:34] LABS: Basophils # 0.1 10*3/uL (0.0-0.2); Basophils % 0.6 % (0.0-0.8); Eosinophils # 0.1 10*3/uL (0.0-0.87); Eosinophils % 0.5 % (0.00-10.9); Hematocrit 23.7 VOL% (35.7-47.0); Hemoglobin 7.8 GM/DL (12.0-16.0); Immature Granulocytes % 14.9 %; Immature Granulocytes Absolute 2.18 #; Lymphocytes # 0.9 10*3/uL (1.4-4.0); Lymphocytes % 5.8 % (21.3-54.2); Mean Corpuscular HGB Conc 32.9 GM/DL (32-36); Mean Corpuscular Volume 104.9 FL (87-102); Mean Platelet Volume 8.7 FL (9.6-12.0); NRBC # 0.02 10*3/uL; Neutrophils % 71.2 % (38.7-73.9); Platelet Count 373 T/CUMM (130-400); Red Blood Count 2.26 MC/CUMM (3.8-5.5); Red Cell Distribution Width 14.8 % (9.3-17.3); White Blood Count 14.7 T/CUMM (4-12)
[2020-05-07 05:44] LABS: Calcium 8.6 MG/DL (8.5-10.1); Osmolality,Calculated 287.4 MOS/KG (273-304)
[2020-05-07 06:03] LABS: Band Neutrophils 7 % (0-10); Eosinophils 1 % (0-10); Lymphocytes 8 % (20-55); Metamyelocytes 3 %; Myelocytes 2 %; Nucleated Red Blood Cells 1 (0-5); Platelet Estimate Normal; Segmented Neutrophils 77 % (50-85); Smudge Cells Few; Total Cells Counted 100
[2020-05-07 06:04] LABS: Anisocytosis 1+; Macrocytosis 1+; Polychromasia Slight
[2020-05-07] MEDS ORDERED: SODIUM CHLORIDE 0.9% 1,000 ML IV SCH (08:00)
[2020-05-07] MEDS: POTASSIUM CHLORIDE 20 MEQ TABLET PO PRN ×3 (09:30→17:07)
[2020-05-07] MEDS: ACETAMINOPHEN 325 MG TABLET PO PRN (09:30)
[2020-05-07] MEDS: OXYBUTYNIN XL 15 MG TABLET PO SCH (09:30)
[2020-05-07] MEDS: amLODIPine 10 MG TABLET PO SCH (09:31)
[2020-05-07] MEDS: ASPIRIN CHEW 81 MG TABLET PO SCH (09:31)
[2020-05-07] MEDS: AMIODARONE 200 MG TABLET PO SCH (09:31)
[2020-05-07] MEDS: busPIRone 5 MG TABLET PO SCH ×2 (09:31→20:27)
[2020-05-07] MEDS: FLUTICASONE 50 MCG NASAL SPRAY 16 GM BOTTLE BOTH NARES SCH ×2 (09:32→20:28)
[2020-05-07] MEDS: ACETAMINOPHEN 500 MG TABLET PO SCH (20:28)
[2020-05-07] MEDS: MELATONIN 3 MG TABLET PO SCH (20:28)
[2020-05-08 05:30] LABS: Basophils % 0.3 % (0.0-0.8); Eosinophils # 0.2 10*3/uL (0.0-0.87); Hematocrit 23.1 VOL% (35.7-47.0); Hemoglobin 7.5 GM/DL (12.0-16.0); Immature Granulocytes % 16.6 %; Immature Granulocytes Absolute 2.49 #; Lymphocytes # 0.8 10*3/uL (1.4-4.0); Lymphocytes % 5.1 % (21.3-54.2); Mean Corpuscular HGB Conc 32.5 GM/DL (32-36); Mean Corpuscular Volume 106.5 FL (87-102); Mean Platelet Volume 8.6 FL (9.6-12.0); Monocytes % 6.9 % (1.7-12.7); Neutrophils % 70.1 % (38.7-73.9); Platelet Count 335 T/CUMM (130-400); Red Blood Count 2.17 MC/CUMM (3.8-5.5); Red Cell Distribution Width 15.1 % (9.3-17.3)
[2020-05-08 05:39] LABS: Calcium 8.2 MG/DL (8.5-10.1)
[2020-05-08 08:25] LABS: Anisocytosis 2+; Band Neutrophils 2 % (0-10); Lymphocytes 6 % (20-55); Macrocytosis 1+; Metamyelocytes 7 %; Nucleated Red Blood Cells 1 (0-5); Platelet Estimate Normal; Polychromasia Slight; Segmented Neutrophils 73 % (50-85); Total Cells Counted 100
[2020-05-08] MEDS: ASPIRIN CHEW 81 MG TABLET PO SCH (09:04)
[2020-05-08] MEDS: busPIRone 5 MG TABLET PO SCH ×2 (09:05→20:31)
[2020-05-08] MEDS: OXYBUTYNIN XL 15 MG TABLET PO SCH (09:05)
[2020-05-08] MEDS: cefTRIAXone 1,000 MG in SYRINGE 1 EACH IV SCH (09:05)
[2020-05-08] MEDS: amLODIPine 10 MG TABLET PO SCH (09:05)
[2020-05-08] MEDS: POTASSIUM CHLORIDE 20 MEQ TABLET PO PRN ×3 (09:05→11:35)
[2020-05-08] MEDS: AMIODARONE 200 MG TABLET PO SCH (09:05)
[2020-05-08] MEDS: FLUTICASONE 50 MCG NASAL SPRAY 16 GM BOTTLE BOTH NARES SCH ×2 (09:06→20:31)
[2020-05-08] MEDS: MELATONIN 3 MG TABLET PO SCH (20:30)
[2020-05-08] MEDS: ACETAMINOPHEN 500 MG TABLET PO SCH (20:31)
[2020-05-09] MEDS: ACETAMINOPHEN 325 MG TABLET PO PRN (01:57)
[2020-05-09 04:07] LABS: Basophils % 0.3 % (0.0-0.8); Eosinophils # 0.1 10*3/uL (0.0-0.87); Eosinophils % 0.7 % (0.00-10.9); Hematocrit 24.8 VOL% (35.7-47.0); Hemoglobin 8.1 GM/DL (12.0-16.0); Lymphocytes # 0.7 10*3/uL (1.4-4.0); Lymphocytes % 5.3 % (21.3-54.2); Mean Corpuscular HGB Conc 32.7 GM/DL (32-36); Mean Corpuscular Volume 105.1 FL (87-102); Mean Platelet Volume 8.6 FL (9.6-12.0); Monocytes % 5.1 % (1.7-12.7); Neutrophils % 74.6 % (38.7-73.9); Platelet Count 325 T/CUMM (130-400); Red Blood Count 2.36 MC/CUMM (3.8-5.5); Red Cell Distribution Width 15.3 % (9.3-17.3); White Blood Count 13.6 T/CUMM (4-12)
[2020-05-09 04:36] LABS: Calcium 8.3 MG/DL (8.5-10.1); Osmolality,Calculated 282.7 MOS/KG (273-304)
[2020-05-09] MEDS: POTASSIUM CHLORIDE 20 MEQ TABLET PO PRN ×2 (05:04→09:35)
[2020-05-09 07:39] LABS: Band Neutrophils 2 % (0-10); Lymphocytes 4 % (20-55); Metamyelocytes 10 %; Myelocytes 1 %; Platelet Estimate Normal; Polychromasia Slight; Segmented Neutrophils 80 % (50-85); Total Cells Counted 100
[2020-05-09] MEDS ORDERED: POTASSIUM CHLORIDE 20 MEQ PACK PO ONE (08:06)
[2020-05-09] MEDS ORDERED: MAGNESIUM SULF RIDER 4 GM in PREMIX 1 EACH IV ONE (08:06)
[2020-05-09] MEDS: ASPIRIN CHEW 81 MG TABLET PO SCH (09:35)
[2020-05-09] MEDS: busPIRone 5 MG TABLET PO SCH ×2 (09:35→20:38)
[2020-05-09] MEDS: OXYBUTYNIN XL 15 MG TABLET PO SCH (09:36)
[2020-05-09] MEDS: amLODIPine 10 MG TABLET PO SCH (09:36)
[2020-05-09] MEDS: AMIODARONE 200 MG TABLET PO SCH (09:36)
[2020-05-09] MEDS: FLUTICASONE 50 MCG NASAL SPRAY 16 GM BOTTLE BOTH NARES SCH ×2 (09:37→20:38)
[2020-05-09] MEDS: cefTRIAXone 1,000 MG in SYRINGE 1 EACH IV SCH (09:37)
[2020-05-09] MEDS: MELATONIN 3 MG TABLET PO SCH (20:38)
[2020-05-09] MEDS: ACETAMINOPHEN 500 MG TABLET PO SCH (20:38)
[2020-05-10 06:00] LABS: Basophils # 0.1 10*3/uL (0.0-0.2); Basophils % 0.5 % (0.0-0.8); Eosinophils # 0.2 10*3/uL (0.0-0.87); Eosinophils % 1.8 % (0.00-10.9); Hematocrit 25.6 VOL% (35.7-47.0); Hemoglobin 8.4 GM/DL (12.0-16.0); Immature Granulocytes % 11.1 %; Immature Granulocytes Absolute 1.23 #; Lymphocytes # 0.6 10*3/uL (1.4-4.0); Lymphocytes % 5.3 % (21.3-54.2); Mean Corpuscular HGB Conc 32.8 GM/DL (32-36); Mean Corpuscular Volume 106.2 FL (87-102); Mean Platelet Volume 9.2 FL (9.6-12.0); Monocytes % 7.1 % (1.7-12.7); Neutrophils % 74.2 % (38.7-73.9); Platelet Count 309 T/CUMM (130-400); Red Blood Count 2.41 MC/CUMM (3.8-5.5); Red Cell Distribution Width 15.8 % (9.3-17.3); White Blood Count 11.1 T/CUMM (4-12)
[2020-05-10 06:35] LABS: Calcium 8.1 MG/DL (8.5-10.1); Osmolality,Calculated 282.4 MOS/KG (273-304)
[2020-05-10] MEDS ORDERED: POTASSIUM CHLORIDE 20 MEQ TABLET PO ONE ×2 (07:42→12:00)
[2020-05-10 08:09] LABS: Band Neutrophils 6 % (0-10); Lymphocytes 8 % (20-55); Metamyelocytes 3 %; Myelocytes 2 %; Platelet Estimate Normal; Segmented Neutrophils 73 % (50-85); Total Cells Counted 100
[2020-05-10] MEDS ORDERED: POTASSIUM CHLORIDE 20 MEQ PACK PO ONE (08:09)
[2020-05-10 08:10] LABS: Anisocytosis 2+; Macrocytosis 1+
[2020-05-10] MEDS: cefTRIAXone 1,000 MG in SYRINGE 1 EACH IV SCH (08:36)
[2020-05-10] MEDS: ASPIRIN CHEW 81 MG TABLET PO SCH (08:39)
[2020-05-10] MEDS: busPIRone 5 MG TABLET PO SCH (08:39)
[2020-05-10] MEDS: OXYBUTYNIN XL 15 MG TABLET PO SCH (08:39)
[2020-05-10] MEDS: AMIODARONE 200 MG TABLET PO SCH (08:39)
[2020-05-10] MEDS: amLODIPine 10 MG TABLET PO SCH (08:40)
[2020-05-10] MEDS: FLUTICASONE 50 MCG NASAL SPRAY 16 GM BOTTLE BOTH NARES SCH (08:40)
[2020-05-10] MEDS ORDERED: MULTIVITAMIN (CENTRUM) TABLET PO SCH (09:00)
[2020-05-10 12:02] VITALS: BP 125/60
== END 2020-05-10 14:24 | disposition home health service (06) | DRG 659 ==
LOC: EDBD → EDUNIT# → N.ED 19:43 → SUATTDRO 22:46 → N.EDINP 22:46 → N.3E 04-19 01:35 → N.TELEN 04-28 16:31
PROVIDERS: ADMIT Internal Medicine; ATTEND Internal Medicine